=== PATIENT | female | born 1945 | race Caucasian/White ===

== ENCOUNTER 2025-01-13 18:03 | Inpatient (IN) ==
[2025-01-13] MEDS ORDERED: IOPAMIDOL 50 ML BOTTLE IV ONE (18:04)
[2025-01-13 18:53] LABS: Basophils # (Auto) 0.05 K/mcL (0.00-0.30); Basophils % (Auto) 0.5 % (0.0-2.0); Eosinophils # (Auto) 0.25 K/mcL (0.00-0.70); Eosinophils % (Auto) 2.7 % (0.0-7.0); Hematocrit 39.9 % (34.1-44.9); Hemoglobin 13.1 g/dL (11.2-15.7); Lymphocytes # (Auto) 1.45 K/mcL (1.50-4.80); Lymphocytes % (Auto) 15.7 % (15.5-49.0); Mean Corpuscular HGB Conc 32.8 g/dL (31.0-36.0); Monocytes # (Auto) 0.77 K/mcL (0.10-0.90); Monocytes % (Auto) 8.3 % (1.0-12.0); Neutrophils % (Auto) 72.7 % (38.0-78.0); Platelet Count 339 K/mcL (140-440); RBC 3.92 M/mcL (3.59-5.38); WBC 9.2 K/mcL (4.5-11.0)
[2025-01-13 19:01] LABS: ALT/SGPT 27 U/L (<40); AST/SGOT 33 U/L (<32); Albumin 4.2 gm/dL (3.2-5.2); Albumin/Globulin Ratio 1.4 (1.0-2.3); Alkaline Phosphatase 73 U/L (39-117); Anion Gap 11.0 (8.0-16.0); Bilirubin,Total 0.7 mg/dL (0.1-1.0); Blood Urea Nitrogen 16 mg/dL (8-23); Calcium 10.3 mg/dL (8.6-10.4); Carbon Dioxide 30 mmol/L (22-30); Chloride 94 mmol/L (96-108); Globulin 2.9 gm/dL (2.2-3.7); Glucose 114 mg/dL (70-105); Potassium 3.8 mmol/L (3.3-5.1); Sodium 135 mmol/L (133-145)
[2025-01-13] MEDS: ONDANSETRON 4 MG/2 ML VIAL IV ONE (19:21)
[2025-01-13 21:29] LABS: Bacteria,Urine 0 /hpf (0); Bilirubin,Urine NEGATIVE (Negative); Color,Urine LT. YELLOW; Glucose,Urine (UA) NEGATIVE (Negative); Ketones,Urine NEGATIVE (Negative); Leukocyte Esterase,Urine NEGATIVE /uL (Negative); PH,Urine 6.0 (5.0-9.0); Protein,Urine NEGATIVE (Negative); Specific Gravity,Urine <= 1.005 (1.000-1.035); Urobilinogen,Urine 0.2 mg/dL
[2025-01-13] MEDS: 0.9 % SODIUM CHLORIDE 1,000 ML IV SCH (21:30)
[2025-01-13] MEDS: fentaNYL 100 MCG/2 ML VIAL IV PRN (21:36)
[2025-01-13 21:51] LABS: INR 0.9 (0.9-1.1); Prothrombin Time 13.0 sec (11.9-14.5)
[2025-01-13] MEDS: PYRIDOSTIGMINE BROMIDE 10 MG/2 ML AMPUL IV SCH (22:47)
[2025-01-14] MEDS: METOCLOPRAMIDE 10 MG/2 ML VIAL IV SCH (00:12)
[2025-01-14 04:26] LABS: Basophils # (Auto) 0.06 K/mcL (0.00-0.30); Basophils % (Auto) 0.7 % (0.0-2.0); Eosinophils # (Auto) 0.28 K/mcL (0.00-0.70); Eosinophils % (Auto) 3.2 % (0.0-7.0); Hematocrit 40.4 % (34.1-44.9); Hemoglobin 13.2 g/dL (11.2-15.7); Lymphocytes # (Auto) 1.99 K/mcL (1.50-4.80); Lymphocytes % (Auto) 22.7 % (15.5-49.0); Mean Corpuscular HGB Conc 32.7 g/dL (31.0-36.0); Monocytes # (Auto) 0.67 K/mcL (0.10-0.90); Monocytes % (Auto) 7.6 % (1.0-12.0); Neutrophils % (Auto) 65.7 % (38.0-78.0); Platelet Count 355 K/mcL (140-440); RBC 3.92 M/mcL (3.59-5.38); WBC 8.8 K/mcL (4.5-11.0)
[2025-01-14 04:56] LABS: ALT/SGPT 43 U/L (<40); AST/SGOT 51 U/L (<32); Albumin 4.2 gm/dL (3.2-5.2); Albumin/Globulin Ratio 1.5 (1.0-2.3); Alkaline Phosphatase 97 U/L (39-117); Anion Gap 12.0 (8.0-16.0); Bilirubin,Direct 0.3 mg/dL (<0.3); Bilirubin,Total 0.7 mg/dL (0.1-1.0); Blood Urea Nitrogen 14 mg/dL (8-23); Calcium 9.9 mg/dL (8.6-10.4); Carbon Dioxide 29 mmol/L (22-30); Chloride 97 mmol/L (96-108); Globulin 2.8 gm/dL (2.2-3.7); Glucose 112 mg/dL (70-105); Phosphorous 3.0 mg/dL (2.5-4.5); Potassium 3.3 mmol/L (3.3-5.1); Sodium 138 mmol/L (133-145); Triglycerides 140 mg/dL (<150); Uric Acid 4.1 mg/dL (2.5-8.0)
[2025-01-14] MEDS: HYDROmorphone 0.5 MG/0.5 ML SYRINGE IV SCH (10:35)
[2025-01-14] MEDS: METHYLNALTREXONE BROMIDE 12 MG/0.6 ML SYRINGE SQ SCH (11:06)
[2025-01-14] MEDS: HYDROmorphone 0.5 MG/0.5 ML SYRINGE IV PRN (14:52)
[2025-01-15 06:03] LABS: Basophils # (Auto) 0.05 K/mcL (0.00-0.30); Basophils % (Auto) 0.7 % (0.0-2.0); Eosinophils # (Auto) 0.32 K/mcL (0.00-0.70); Eosinophils % (Auto) 4.5 % (0.0-7.0); Hematocrit 35.9 % (34.1-44.9); Hemoglobin 11.7 g/dL (11.2-15.7); Lymphocytes # (Auto) 1.14 K/mcL (1.50-4.80); Lymphocytes % (Auto) 16.0 % (15.5-49.0); Mean Corpuscular HGB Conc 32.6 g/dL (31.0-36.0); Monocytes # (Auto) 0.64 K/mcL (0.10-0.90); Monocytes % (Auto) 9.0 % (1.0-12.0); Neutrophils % (Auto) 69.8 % (38.0-78.0); Platelet Count 348 K/mcL (140-440); RBC 3.49 M/mcL (3.59-5.38); WBC 7.1 K/mcL (4.5-11.0)
[2025-01-15 06:29] LABS: ALT/SGPT 26 U/L (<40); AST/SGOT 25 U/L (<32); Albumin 3.8 gm/dL (3.2-5.2); Albumin/Globulin Ratio 1.6 (1.0-2.3); Alkaline Phosphatase 76 U/L (39-117); Anion Gap 11.0 (8.0-16.0); Bilirubin,Direct 0.3 mg/dL (<0.3); Bilirubin,Total 0.6 mg/dL (0.1-1.0); Blood Urea Nitrogen 16 mg/dL (8-23); Calcium 8.8 mg/dL (8.6-10.4); Carbon Dioxide 28 mmol/L (22-30); Chloride 102 mmol/L (96-108); Globulin 2.4 gm/dL (2.2-3.7); Glucose 95 mg/dL (70-105); Phosphorous 2.6 mg/dL (2.5-4.5); Potassium 3.3 mmol/L (3.3-5.1); Sodium 141 mmol/L (133-145); Triglycerides 114 mg/dL (<150); Uric Acid 4.2 mg/dL (2.5-8.0)
[2025-01-15] MEDS: LOSARTAN 50 MG TABLET PO SCH (08:43)
[2025-01-15] MEDS: PANTOPRAZOLE 40 MG TABLET PO SCH (08:46)
[2025-01-15] MEDS: ACETAMINOPHEN 500 MG TABLET PO PRN (08:46)
[2025-01-15] MEDS: ONDANSETRON 4 MG/2 ML VIAL IV PRN (13:12)
[2025-01-15] MEDS: METHOCARBAMOL 1,000 MG/10 ML VIAL IV PRN (13:12)
[2025-01-15] MEDS: BUTALB/ACETAMINOPHEN/CAFFEINE 1 TABLET PO PRN (18:14)
[2025-01-15] MEDS: SIMETHICONE 80 MG TAB.CHEW CHEWED PRN (18:15)
[2025-01-16] MEDS ORDERED: DIATRIZOATE MEGLU/DIATRIZO SOD 120ML BOTTLE PO ONE (09:40)
[2025-01-16 14:09] LABS: Basophils # (Auto) 0.05 K/mcL (0.00-0.30); Basophils % (Auto) 0.8 % (0.0-2.0); Eosinophils # (Auto) 0.14 K/mcL (0.00-0.70); Eosinophils % (Auto) 2.2 % (0.0-7.0); Hematocrit 37.0 % (34.1-44.9); Hemoglobin 12.3 g/dL (11.2-15.7); Lymphocytes # (Auto) 1.17 K/mcL (1.50-4.80); Lymphocytes % (Auto) 18.4 % (15.5-49.0); Mean Corpuscular HGB Conc 33.2 g/dL (31.0-36.0); Monocytes # (Auto) 0.51 K/mcL (0.10-0.90); Monocytes % (Auto) 8.0 % (1.0-12.0); Neutrophils % (Auto) 70.6 % (38.0-78.0); Platelet Count 403 K/mcL (140-440); RBC 3.64 M/mcL (3.59-5.38); WBC 6.4 K/mcL (4.5-11.0)
[2025-01-16 14:45] LABS: Bilirubin,Urine NEGATIVE (Negative); Color,Urine YELLOW; Glucose,Urine (UA) NEGATIVE (Negative); Ketones,Urine 15 mg/dL (Negative); Leukocyte Esterase,Urine NEGATIVE /uL (Negative); PH,Urine 6.5 (5.0-9.0); Protein,Urine NEGATIVE (Negative); Specific Gravity,Urine 1.020 (1.000-1.035); Urobilinogen,Urine 0.2 mg/dL
[2025-01-16] MEDS: POTASSIUM CHLORIDE 40 MEQ in DEXTROSE 5% IN WATER 500 ML IV ONE (17:50)
[2025-01-16] MEDS: POTASSIUM CHLORIDE 20 MEQ TABLET PO SCH (17:57)
[2025-01-17 06:09] LABS: Basophils # (Auto) 0.04 K/mcL (0.00-0.30); Basophils % (Auto) 0.7 % (0.0-2.0); Eosinophils # (Auto) 0.34 K/mcL (0.00-0.70); Eosinophils % (Auto) 5.5 % (0.0-7.0); Hematocrit 35.7 % (34.1-44.9); Hemoglobin 12.1 g/dL (11.2-15.7); Lymphocytes # (Auto) 1.21 K/mcL (1.50-4.80); Lymphocytes % (Auto) 19.7 % (15.5-49.0); Mean Corpuscular HGB Conc 33.9 g/dL (31.0-36.0); Monocytes # (Auto) 0.51 K/mcL (0.10-0.90); Monocytes % (Auto) 8.3 % (1.0-12.0); Neutrophils % (Auto) 65.8 % (38.0-78.0); Platelet Count 390 K/mcL (140-440); RBC 3.56 M/mcL (3.59-5.38); WBC 6.1 K/mcL (4.5-11.0)
[2025-01-17 07:58] VITALS: O2SAT 100
[2025-01-17] MEDS ORDERED: NON FORMULARY MEDICATION 1 DOSE MISCELL (Irbesartan 300 mg tablet) PO SCH (09:00)
[2025-01-17 11:54] VITALS: TEMP 98.2
== END 2025-01-17 13:45 | disposition home or self-care (01) | DRG 390 ==
LOC: ED 18:03 → MEDSUR 23:17
PROVIDERS: ADMIT Family Medicine Adult Medicine; ATTEND Family Medicine Adult Medicine